=== PATIENT | female | born 1935 | race African-American/Black ===

== ENCOUNTER 2020-01-20 04:24 | Day surgery (SDC) | payer BC ==
[2020-01-19 11:18] VITALS: BMI 26.4
--- NOTE | 2020-01-19 22:05 | PROC ---
Procedure Note Procedure: Pre procedure Diagnosis: Lumbar Spinal Stenosis/ Lumbar radiculopathy Post Procedure Diagnosis: same Anesthesia: local Procedure Performed: L5-S1 Interlaminar epidural steroid injection ABORTED After the risks and benefits were explained, informed consent was obtained. The patient was then taken to the procedure room and positioned prone on the procedure table. Time out was performed. Pt Blood pressure was elevated. Pt Denied symptoms of headache. The procedure was aborted and she was scheduled a f/u appointment with her PCP. The patient was given a follow up appointment with me in the near future. Fritz Saha DO
[2020-01-20] MEDS ORDERED: TRIAMCINOLONE ACET 40MG/1ML VIAL ONE (07:22)
[2020-01-20] MEDS ORDERED: LIDOCAINE HCL/PF 1% SDV 5ML VIAL ONE (07:24)
[2020-01-20] MEDS ORDERED: DEXAMETHASONE SOD PHOSPHATE/PF 10 MG/ML SDV ONE (07:24)
[2020-01-20] MEDS ORDERED: BUPIVACAINE HCL/PF 0.75% 10 ML VIAL ONE (07:25)
[2020-01-20] MEDS ORDERED: SODIUM CHLORIDE 0.9% P/F 10 ML VIAL IJ ONE (07:32)
[2020-01-20 08:43] VITALS: TEMP 97.1
[2020-01-20 09:15] VITALS: BP 184/77; PULSE 59
== END 2020-01-20 09:21 | disposition home or self-care (01) ==
LOC: JASU-SURG 04:24
PROVIDERS: ATTEND Pain Medicine Pain Medicine
PROC: 3E0R33Z Introduction of Anti-inflammatory into Spinal Canal, Percutaneous Approach (ICD-10-PCS; 2020-01-20)
PROC: 3E0R3BZ Introduction of Anesthetic Agent into Spinal Canal, Percutaneous Approach (ICD-10-PCS; principal; 2020-01-20 08:00)
DX: M48.061 Spinal stenosis, lumbar region without neurogenic claudication (principal); M54.16 Radiculopathy, lumbar region; R03.0 Elevated blood-pressure reading, without diagnosis of hypertension; Z53.8 Procedure and treatment not carried out for other reasons

== ENCOUNTER 2020-01-23 04:31 | Day surgery (SDC) | payer BC ==
[2020-01-20 15:12] VITALS: BMI 26.4
[2020-01-23] MEDS ORDERED: DEXAMETHASONE SOD PHOSPHATE/PF 10 MG/ML SDV ONE (07:13)
[2020-01-23] MEDS ORDERED: LIDOCAINE HCL/PF 1% SDV 5ML VIAL ONE (07:13)
[2020-01-23] MEDS ORDERED: TRIAMCINOLONE ACET 40MG/1ML VIAL ONE (07:23)
[2020-01-23] MEDS ORDERED: BUPIVACAINE HCL/PF 0.75% 10 ML VIAL ONE (07:23)
--- NOTE | 2020-01-23 08:11 | HP ---
Admitting History and Physical - Admission Chief Complaint: Low back and Bilateral Leg pain History of Present Illness: Pt complains of low back and leg pain. History Source: Patient - Smoking History Smoking history: Never smoked Aproximately how many cigarettes per day: 0 Home Medications - Allergies Allergies/Adverse Reactions: Allergies Allergy/AdvReac Type Severity Reaction Status Date / Time No Known Allergies Allergy Verified 01/23/20 07:14 - Home Medications Home Medications: Ambulatory Orders Atorvastatin Ca [Lipitor] 20 mg PO HS 01/19/20 Clopidogrel Bisulfate [Clopidogrel] 75 mg PO DAILY 01/19/20 Losartan/Hydrochlorothiazide [Losartan-Hctz 100-25 mg Tab] 1 each PO HS 01/19/20 Review of Systems - Review of Systems Constitutional: reports: No Symptoms Eyes: reports: No Symptoms HENT: reports: No Symptoms Neck: reports: No Symptoms Cardiovascular: reports: No Symptoms Respiratory: reports: No Symptoms Gastrointestinal: reports: No Symptoms Genitourinary: reports: No Symptoms Breasts: reports: No Symptoms Reported Integumentary: reports: No Symptoms Neurological: reports: Parasthesia Psychiatric: reports: No Symptoms Physical Examination Vital Signs: Vital Signs Temperature 97.8 F 01/23/20 07:12 Pulse Rate 69 01/23/20 07:12 Respiratory Rate 20 01/23/20 07:12 Blood Pressure 151/74 01/23/20 07:12 O2 Sat by Pulse Oximetry (%) 99 01/23/20 07:12 Constitutional: Yes: No Distress, Calm Eyes: Yes: Conjunctiva Clear, EOM Intact HENT: Yes: Atraumatic, Normocephalic Neck: Yes: Supple, Trachea Midline Cardiovascular: Yes: WNL Respiratory: Yes: Regular Gastrointestinal: Yes: Soft Musculoskeletal: Yes: Back Pain Neurological: Yes: Paresthesia ...Motor Strength: WNL Psychiatric: Yes: WNL Imaging - Results MRI: Report Reviewed, Image Reviewed Assessment/Plan The patients pain is secondary to 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 1. I will perform left L5-S1 paracentral interlaminar epidural steroid injection.
[2020-01-23 10:22] VITALS: TEMP 97.1
[2020-01-23 10:31] VITALS: BP 154/77; PULSE 67
== END 2020-01-23 10:10 | disposition home or self-care (01) ==
LOC: JASU-SURG 04:31
PROVIDERS: ATTEND Pain Medicine Pain Medicine
DX: Z53.8 Procedure and treatment not carried out for other reasons (principal)

== ENCOUNTER 2020-01-27 05:27 | Day surgery (SDC) | payer BC ==
--- NOTE | 2020-01-26 21:32 | PROC ---
Procedure Note Procedure: Pre procedure Diagnosis: Lumbar Spinal Stenosis/ Lumabr radiculopathy Post Procedure Diagnosis: same Anesthesia: local Procedure Performed: L5-S1 Interlaminar epidural steroid injection After the risks and benefits were explained, informed consent was obtained. The patient was then taken to the procedure room and positioned prone on the procedure table. Time out was performed. Interlaminar space was identified using fluoroscopy. The skin was prepped and draped in the usual sterile fashion. The skin and soft tissues were anesthetized using 1% lidocaine. Under intermittent fluoroscopic guidance, a #22 gauge 3.5 inch T[place] was successfully directed into the posterior epidural space at the L4-L5 level, using a posterior approach and loss of resistance technique. Needle placement was then confirmed with the injection of Omnipaque 180. Epidural flow was noted and no vascular uptake was noted. A 5 cc cocktail of 2 cc normal saline and 2 cc Dexamethasone 10 mg/mL and 1 cc of 1% lidocaine was then injected at the site. The patients response was again monitored and sensorimotor examination remained unchanged. The patient tolerated the procedure well and there were no complications. The patient was taken to the post procedure recovery area in good condition. Vital signs remained stable before, and after the procedure. The patient was given oral follow-up instructions. The patient was given a follow up appointment with me in the near future. Fritz Saha DO
[2020-01-27 09:19] VITALS: BMI 26.4
[2020-01-27] MEDS ORDERED: DEXAMETHASONE SOD PHOSPHATE/PF 10 MG/ML SDV ONE (10:33)
[2020-01-27] MEDS ORDERED: LIDOCAINE 1% P/F 10 MG/ML VIAL PNB ONE (10:37)
[2020-01-27] MEDS ORDERED: IOHEXOL 180 MG/1 ML ML IJ ONE ×2 (10:38)
[2020-01-27] MEDS ORDERED: DEXAMETHASONE SOD PHOSPHATE 10 MG/1 ML VIAL IVPUSH ONE (10:38)
[2020-01-27 12:36] VITALS: BP 156/74; PULSE 71; TEMP 97.3
== END 2020-01-27 11:50 | disposition home or self-care (01) ==
LOC: JASU-SURG 05:27
PROVIDERS: ATTEND Pain Medicine Pain Medicine
PROC: 3E0R3BZ Introduction of Anesthetic Agent into Spinal Canal, Percutaneous Approach (ICD-10-PCS; 2020-01-27)
PROC: B01BYZZ Fluoroscopy of Spinal Cord using Other Contrast (ICD-10-PCS; 2020-01-27)
PROC: 3E0R33Z Introduction of Anti-inflammatory into Spinal Canal, Percutaneous Approach (ICD-10-PCS; principal; 2020-01-27 10:30)
DX: M48.061 Spinal stenosis, lumbar region without neurogenic claudication (principal); M54.16 Radiculopathy, lumbar region; I10 Essential (primary) hypertension; R73.03 Prediabetes; E78.00 Pure hypercholesterolemia, unspecified
CPT/HCPCS: 76000-TC-FY; J1100

== ENCOUNTER 2020-02-24 04:22 | Day surgery (SDC) | payer BC, OTHER ==
[2020-02-23 12:36] VITALS: BMI 26.4
[2020-02-24] MEDS ORDERED: LIDOCAINE HCL/PF 1% SDV 5ML VIAL ONE (07:23)
[2020-02-24] MEDS ORDERED: DEXAMETHASONE SOD PHOSPHATE/PF 10 MG/ML SDV ONE (09:26)
[2020-02-24] MEDS ORDERED: IOHEXOL 180 MG/1 ML ML IJ ONE (12:36)
[2020-02-24] MEDS ORDERED: LIDOCAINE HCL 1% PRESERVATIVE FREE - 30ML VIAL IJ ONE (12:36)
[2020-02-24] MEDS ORDERED: DEXAMETHASONE SOD PHOSPHATE 10 MG/1 ML VIAL IVPUSH ONE (12:36)
[2020-02-24 13:35] VITALS: BP 161/58; PULSE 68; TEMP 97.5
== END 2020-02-24 13:50 | disposition home or self-care (01) ==
LOC: JASU-SURG 04:22
PROVIDERS: ATTEND Pain Medicine Pain Medicine
PROC: 3E0R33Z Introduction of Anti-inflammatory into Spinal Canal, Percutaneous Approach (ICD-10-PCS; 2020-02-24)
PROC: 3E0R3BZ Introduction of Anesthetic Agent into Spinal Canal, Percutaneous Approach (ICD-10-PCS; principal; 2020-02-24 11:30)
DX: M48.061 Spinal stenosis, lumbar region without neurogenic claudication (principal); M54.16 Radiculopathy, lumbar region
CPT/HCPCS: 76000-TC-FY; J1100

== ENCOUNTER 2020-03-16 06:04 | Day surgery (SDC) | payer BC, OTHER ==
[2020-03-15 13:14] VITALS: BMI 26.4
[2020-03-16] MEDS ORDERED: LIDOCAINE HCL 1% PRESERVATIVE FREE - 30ML VIAL INF ONE (14:38)
[2020-03-16] MEDS ORDERED: BUPIVACAINE HCL/PF 0.75% 10 ML VIAL PNB ONE (14:39)
[2020-03-16 15:35] VITALS: BP 147/65; PULSE 62
[2020-03-16 16:02] VITALS: TEMP 98
== END 2020-03-16 15:45 | disposition home or self-care (01) ==
LOC: JASU-SURG 06:04
PROVIDERS: ATTEND Pain Medicine Pain Medicine
PROC: 3E0T33Z Introduction of Anti-inflammatory into Peripheral Nerves and Plexi, Percutaneous Approach (ICD-10-PCS; 2020-03-16)
PROC: 3E0T3BZ Introduction of Anesthetic Agent into Peripheral Nerves and Plexi, Percutaneous Approach (ICD-10-PCS; principal; 2020-03-16 14:30)
DX: M47.816 Spondylosis without myelopathy or radiculopathy, lumbar region (principal); M54.5 Low back pain
CPT/HCPCS: 76000-TC-FY

== ENCOUNTER 2022-06-06 04:15 | Day surgery (SDC) | payer BC ==
[2022-06-04 13:01] VITALS: BMI 26.2
[~2022-06-06 04:15] MED LIST: DEXAMETHASONE SOD PHOSPHATE 10 MG/1 ML VIAL IVPUSH ONE; LIDOCAINE 1% P/F 10 MG/ML VIAL PNB ONE
[2022-06-06] MEDS ORDERED: LIDOCAINE HCL/PF 1% SDV 5ML VIAL ONE (07:35)
[2022-06-06] MEDS ORDERED: DEXAMETHASONE SOD PHOSPHATE 4 MG/1 ML VIAL ONE (07:35)
[2022-06-06] MEDS ORDERED: DEXAMETHASONE SOD PHOSPHATE 10 MG/1 ML VIAL ONE (07:36)
[2022-06-06] MEDS ORDERED: DEXAMETHASONE SOD PHOSPHATE 10 MG/1 ML VIAL IVPUSH ONE (11:09)
[2022-06-06] MEDS ORDERED: LIDOCAINE 1% P/F 10 MG/ML VIAL PNB ONE (11:09)
[2022-06-06 12:48] VITALS: BP 136/75; PULSE 69; RESP 18; TEMP 97.9
== END 2022-06-06 12:30 | disposition home or self-care (01) ==
LOC: JASU-SURG 04:15
PROVIDERS: ATTEND Pain Medicine Pain Medicine
PROC: 3E0R3BZ Introduction of Anesthetic Agent into Spinal Canal, Percutaneous Approach (ICD-10-PCS; 2022-06-06)
PROC: 3E0R33Z Introduction of Anti-inflammatory into Spinal Canal, Percutaneous Approach (ICD-10-PCS; principal; 2022-06-06 11:30)
DX: M48.061 Spinal stenosis, lumbar region without neurogenic claudication (principal); M54.16 Radiculopathy, lumbar region
CPT/HCPCS: 76000-TC-FY; J1100